=== PATIENT | female | born 1970 | race Caucasian/White ===

== ENCOUNTER → 2018-10-19 | Outpatient (CLI) | payer OTHER ==
[~2018-10-19] MED LIST: DIAZ5TAB PO; HYDR-3307 PO; HYDR2TAB29 PO; NORG1TAB6 PO; OXYC-302 PO
== END | disposition home or self-care (01) ==
LOC: CFH 14:53
PROVIDERS: ATTEND Obstetrics & Gynecology
DX: Z12.31 Encounter for screening mammogram for malignant neoplasm of breast (principal)
CPT/HCPCS: 77067

== ENCOUNTER → 2018-11-01 | Outpatient (CLI) | payer OTHER | END | disposition home or self-care (01) | LOC: CFH 08:49 | PROVIDERS: ATTEND Obstetrics & Gynecology | DX: N63.10 Unspecified lump in the right breast, unspecified quadrant (principal) | CPT/HCPCS: 76641; 77065; G0279 ==

== ENCOUNTER 2019-09-19 06:28 | Day surgery (SDC) | payer OTHER ==
[2019-09-16 10:18] LABS: BASOPHILS # (AUTO) 0.02 x10^3/uL (0-0.1); BASOPHILS % (AUTO) 0 % (0-1); EOSINOPHILS # (AUTO) 0.02 x10^3/uL (0-0.4); EOSINOPHILS % (AUTO) 0 % (1-7); LYMPHOCYTES # (AUTO) 1.44 x10^3/uL (1-3.4); LYMPHOCYTES % (AUTO) 17 % (22-44); MD NO; MEAN CORPUSCULAR HEMOGLOBIN 30.6 pg (27.0-34.8); MEAN CORPUSCULAR HGB CONC 33.7 g/dL (32.4-35.8); MEAN CORPUSCULAR VOLUME 90.9 fL (80-100); MEAN PLATELET VOLUME 8.3 fL (7.4-10.4); MONOCYTES # (AUTO) 0.35 x10^3/uL (0.2-0.8); MONOCYTES % (AUTO) 4 % (2-9); NEUTROPHILS # (AUTO) 6.79 x10^3/uL (1.8-6.8); NEUTROPHILS % (AUTO) 79 % (42-75); PLATELET COUNT 414 x10^3/uL (130-400); RED BLOOD COUNT 4.34 x10^6/uL (3.82-5.3); RED CELL DISTRIBUTION WIDTH 13.2 % (9.6-15.2)
[2019-09-16 10:22] LABS: INTERNATIONAL NORMALIZED RATIO 0.93 (0.93-1.1); PROTHROMBIN TIME 9.8 Seconds (9.6-11.5)
[2019-09-16 10:25] LABS: ALBUMIN 3.3 g/dL (3.4-5.0); ANION GAP 6 mmol/L (5-15); CALCIUM 8.7 mg/dL (8.5-10.1); CHLORIDE 107 mmol/L (98-107)
[2019-09-16 10:28] LABS: ALANINE AMINOTRANSFERASE 19 U/L (12-78); ALKALINE PHOSPHATASE 45 U/L (45-117); BILIRUBIN,TOTAL 0.3 mg/dL (0.2-1.0); CREATININE 0.83 mg/dL (0.55-1.02)
[2019-09-16 13:18] VITALS: BP 118/73
[~2019-09-19] VITALS: Ht 160 cm; Wt 59.1 kg
[~2019-09-19 06:28] MED LIST changes: -HYDR-3307 PO; +HYDR-36 PO; +NORG1TAB65 PO
[2019-09-19] MEDS ORDERED: SODIUM CHLORIDE 0.9% 1,000 ML IV SCH (06:42)
[2019-09-19] MEDS ORDERED: OXYC10TA6 PO (07:00)
[2019-09-19] MEDS ORDERED: LIDOCAINE 2%, 20ML ONE (08:02)
[2019-09-19] MEDS ORDERED: FENTANYL PF 100 MCG/2ML ONE (08:03)
[2019-09-19] MEDS ORDERED: MIDAZOLAM 1 MG/ML, 5ML ONE (08:03)
[2019-09-19] MEDS ORDERED: ISOPROTERENOL 0.2MG/ML, 5ML ONE (08:03)
[2019-09-19] MEDS ORDERED: NORGESTIMATE-ETHINYL ESTRADIOL TABLET PO SCH (09:30)
== END 2019-09-19 14:07 | disposition home or self-care (01) ==
LOC: CACL 06:28
PROVIDERS: ATTEND Internal Medicine Cardiovascular Disease
DX: I47.1 Supraventricular tachycardia (principal); E78.5 Hyperlipidemia, unspecified; Z79.891 Long term (current) use of opiate analgesic; Z79.899 Other long term (current) drug therapy; Z88.8 Allergy status to other drugs, medicaments and biological substances; Z91.048 Other nonmedicinal substance allergy status; Z79.01 Long term (current) use of anticoagulants
CPT/HCPCS: 36415; 71046; 80053; 85025; 85610; 85730; 93613; 93623; 93653; 99156; 99157; C1730; C1766; C1894; C2630; J2250; J3010